=== PATIENT | male | born 1965 | race Caucasian/White ===

== ENCOUNTER 2018-01-30 10:00 | Outpatient (RCR) | payer OTHER, SELFPAY ==
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
--- NOTE | 2018-01-30 10:52 | HP.PTDCSUM ---
HP - PT D/C Summary It has been my pleasure to treat CYNDEE PINEDA under orders from Out of Town Doctor, for the diagnosis of L tibia Fx for a total of 65 visit(s). Discharge Date: 01/30/18 Please see the following information for a summary of their discharge status. - Subjective Subjective: Pt reports that he pretty much always has 2/10 pain. - Pain L leg Pain Intensity (Out of 10): 2 - Overall Improvement % Improvement: 65 - Objective Objective/Function: Met all the goals. - Goals Goal 1:: I HEP Goal Progress: Goal Met Goal 2:: Increase L knee AROM 0-120 degrees L knee flexion Goal Progress: Goal Met Goal 3:: Be able to complete 3X 20 SLR, and S/L hip abd without difficulty Goal Progress: Goal Met Goal 4:: Be able to complete 3 X 20 Squats with 30# with good form and without difficulty Goal Progress: Goal Met Goal 5:: Decrease overall pain to 1/10 with ADL's and RTW activities Goal Progress: Progressing - Plan Plan: DC PT at this time. Pt is awaiting approval on Eval. - D/C Information Discharge Comments: DC PT If there are questions or concerns regarding this patient's physical therapy, please feel free to call me at [phone]. Thank you for the referral of this patient. Sincerely, Sonia Meraz
== END 2018-01-30 19:00 | disposition home or self-care (01) ==
LOC: PT 10:00
PROVIDERS: Family Provider Nurse Practitioner Family; PCP Nurse Practitioner Family
DX: S82.142D Displaced bicondylar fracture of left tibia, subsequent encounter for closed fracture with routine healing (principal); T79.A22D Traumatic compartment syndrome of left lower extremity, subsequent encounter
CPT/HCPCS: 97014; 97110; 97161; G0283